=== PATIENT | female | born 1990 | race Two or more races ===

== ENCOUNTER 2018-04-14 11:22 | Emergency (ER) | payer SELFPAY ==
[2018-04-14] MEDS ORDERED: Lidocaine 1% 20 ML MDV INJECT ONE (11:36)
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
[2018-04-14] MEDS ORDERED: Diphtheria,Pertussis(Acell),Tetanus Vaccine 0.5 ML Syringe IM ONE (11:50)
[2018-04-14] MEDS ORDERED: Bacitracin Oint 1 GM U/D Packet TOP ONE ×2 (12:21→13:57)
--- NOTE | 2018-04-15 14:31 | CR ---
EXAM DATE: 04/14/18 PATIENT'S AGE: 27 Patient: CARY EMERSON Facility: [place], [place] Site . Site : 1990 Study: XRay Extremity Right forearm [id number] 1:43:10 PM Ordering Physician: Doctor Shields Final Report: Pain 2 views of the right 2 views of the right forearm performed at 1:32 p.m. this is compared to forearm x-rays at 12:34 p.m. Normal alignment. No acute fractures seen. Radiopaque foreign body now measures 6 mm along the medial distal aspect of the forearm previously measuring 15 mm. Soft tissue swelling. No acute fracture. Dictated by Cristela Carcamo MD @ Apr 14 2018 2:16PM (Electronic Signature) Report Signed by Proxy. SHASHA
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
== END 2018-04-14 14:17 | disposition home or self-care (01) ==
LOC: MW.ED 11:22
DX: S51.811A Laceration without foreign body of right forearm, initial encounter (principal); Z23 Encounter for immunization; V19.9XXA Pedal cyclist (driver) (passenger) injured in unspecified traffic accident, initial encounter
CPT/HCPCS: 73090-26-RT; 73090-RT; 90471; 90715; 99282-25

== ENCOUNTER 2018-04-17 11:48 | Day surgery (SDC) | payer SELFPAY ==
[~2018-04-17 11:48] MED LIST: Acetaminophen/HYDROcodone 325-5 MG Tab PO PRN; Bupivacaine 0.5% 10 ML SDV ONE; Lactated Ringers 1,000 ML IV SCH; ceFAZolin 1 GM in Premix Bag 1 BAG IV SCH
--- NOTE | 2018-04-17 12:17 | PCM.PREANE ---
Preanesthetic Assessment - Anesthesia/Transfusion/Family Hx Anesthesia History: No Prior Anesthesia Family History of Anesthesia Reaction: No Transfusion History: No Prior Transfusion(s) Intubation History: Unknown - Review of Systems General: No Symptoms Pulmonary: No Symptoms Cardiovascular: No Symptoms Gastrointestinal: No Symptoms Neurological: No Symptoms Other: Reports: None - Physical Assessment Height: 1.52 m Weight: 67.132 kg ASA Class: 2 Mental Status: Alert & Oriented x3 Airway Class: Mallampati = 2 Dentition: Reports: Normal Dentition Thyro-Mental Finger Breadths: 3 Mouth Opening Finger Breadths: 3 ROM/Head Extension: Full Lungs: Clear to Auscultation, Normal Respiratory Effort Cardiovascular: Regular Rate, Regular Rhythm - Allergies Allergies/Adverse Reactions: Allergies Allergy/AdvReac Type Severity Reaction Status Date / Time No Known Allergies Allergy Verified 04/14/18 11:35 - Blood Blood Available: No - Anesthesia Plan Pre-Op Medication Ordered: None - Acknowledgements Anesthesia Type Planned: General Anesthesia Pt an Appropriate Candidate for the Planned Anesthesia: Yes Alternatives and Risks of Anesthesia Discussed w Pt/Guardian: Yes Pt/Guardian Understands and Agrees with Anesthesia Plan: Yes PreAnesthesia Questionnaire Cardiovascular History: Reports: Hypertension Other Cardiovascular History: states has hx of hypertension- has been taken off meds Genitourinary History: Reports: Chronic Renal Insuffiency Other Genitourinary History: states renal disease since age 6 Dermatologic History: Reports: Other (See Below) Other Dermatologic History: states very sensitive to sunlight- causes a rash - SUBSTANCE USE Smoking Status *Q: Never Smoker Recreational Drug Use History: No - HOME MEDS Home Medications: Home Meds Amoxicillin/Potassium Clav [Augmentin 875-125 Tablet] 1 each PO BID #14 tablet 04/14/18 [Rx] Hydrocodone/Acetaminophen [Hydrocodon-Acetaminophen 5-325] 1 tab PO ASDIRECTED PRN 04/16/18 [History] - CURRENT (IN HOUSE) MEDS Current Meds: Current Medications Hydrocodone Bitart/Acetaminophen ([place] 325-5 Mg) 1 - 2 tab PO Q4H PRN PRN Reason: Pain Cefazolin Sodium/Dextrose 1 gm (/ Premix) 50 mls @ 100 mls/hr IV ONCALL ANABELL Lactated Ringer's (Ringers, Lactated) 1,000 mls @ 100 mls/hr IV ASDIRECTED ANABELL Discontinued Medications Bupivacaine HCl (Sensorcaine-Mpf 0.5%) Confirm Administered Dose 10 ml .ROUTE .Today [facility] Stop: 04/17/18 08:12
[2018-04-17] MEDS ORDERED: Midazolam 1 MG/ML 2 ML SDV ONE (12:18)
[2018-04-17] MEDS ORDERED: fentaNYL 250 MCG/5 ML SDV ONE (12:18)
[2018-04-17] MEDS ORDERED: Propofol 200 MG/20 ML SDV ONE (12:18)
[2018-04-17] MEDS ORDERED: Lidocaine 2% 5 ML SDV ONE (12:18)
[2018-04-17] MEDS ORDERED: Ondansetron 4 MG/2 ML SDV ONE (12:25)
[2018-04-17] MEDS ORDERED: fentaNYL 100 MCG/2 ML SDV IVPUSH PRN (13:30)
--- NOTE | 2018-04-17 14:09 | PCM.OPNOTE ---
- General Post-Op/Procedure Note Date of Surgery/Procedure: 04/17/18 Operative Procedure(s): Removal foreign body right forearm Post-Op Diagnosis: FB R forearm Anesthesia Technique: General LMA Primary Surgeon: Sana Reyes Contracts Advisor: Adrián Lucero in mLs: 5 Condition: Good Free Text/Narrative:: tt=0 min #[id number]
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
--- NOTE | 2018-04-17 15:23 | CR ---
EXAMINATION: Right forearm HISTORY: foreign body removal COMPARISON: 04/14/2018 TECHNIQUE: 2 views FINDINGS/IMPRESSION: There is no acute osseous abnormality, dislocation, or fracture. Previously demo nstrated radiopaque foreign body is no longer identified.
== END 2018-04-17 16:05 | disposition home or self-care (01) ==
LOC: MW.SDS 11:48
PROVIDERS: ATTEND Orthopaedic Surgery
DX: M79.5 Residual foreign body in soft tissue (principal); F17.210 Nicotine dependence, cigarettes, uncomplicated; I12.9 Hypertensive chronic kidney disease with stage 1 through stage 4 chronic kidney disease, or unspecified chronic kidney disease; N18.9 Chronic kidney disease, unspecified; Z18.81 Retained glass fragments; Z79.2 Long term (current) use of antibiotics; W45.8XXA Other foreign body or object entering through skin, initial encounter
CPT/HCPCS: 25248; 76000; 81025; 88300; A9270; J0690; J2250; J2405; J3010; J7120; J2704

== ENCOUNTER 2018-07-18 13:27 | Emergency (ER) | payer SELFPAY ==
--- NOTE | 2018-07-18 14:33 | EDM.PDOC ---
ED HPI GENERAL MEDICAL PROBLEM - General Chief Complaint: ENT Problem Stated Complaint: RT SIDE OF HEAD HURTS Time Seen by Provider: 07/18/18 14:30 Source of Information: Reports: Patient History Limitations: Reports: No Limitations - History of Present Illness INITIAL COMMENTS - FREE TEXT/NARRATIVE: HISTORY AND PHYSICAL: History of present illness: Patient is a 27-year-old female here with complaint of right ear pain x 3 days. She states denies any fevers, chills, nausea, vomiting. She states she's has some nasal congestion. Denies cough, SOB. She has not been taking anything OTC for the pain. Denies trauma to the ear. Review of systems: As per history of present illness and below otherwise all systems reviewed and negative. Past medical history: As per history of present illness and as reviewed below otherwise noncontributory. Surgical history: As per history of present illness and as reviewed below otherwise noncontributory. Social history: No reported history of drug or alcohol abuse. Family history: As per history of present illness and as reviewed below otherwise noncontributory. Physical exam: General: patient sitting comfortably in no acute distress HEENT: Right TM is slightly erythematous and bulging with purulent fluid noted. Atraumatic, normocephalic, pupils reactive, negative for conjunctival pallor or scleral icterus, mucous membranes moist, throat clear, neck supple, nontender, trachea midline. Lungs: Clear to auscultation, breath sounds equal bilaterally, chest nontender. Heart: S1S2, regular, negative for clicks, rubs, or JVD. Abdomen: Soft, nondistended, nontender. Negative for masses or hepatosplenomegaly. Negative for costovertebral tenderness. Pelvis: Stable nontender. Genitourinary: Deferred. Rectal: Deferred. Extremities: Atraumatic, negative for cords or calf pain. Neurovascular unremarkable. Neuro: Awake, alert, oriented. Cranial nerves II through XII unremarkable. Cerebellum unremarkable. Motor and sensory unremarkable throughout. Exam nonfocal. Notes: Diagnostics: None Therapeutics: None Prescription Augmentin Impression: Otitis media Plan: 1. Take antibiotic as directed. Alternate tylenol and motrin as needed 2. Follow up with primary care provider 3. Return to ED as needed as discussed Definitive disposition and diagnosis as appropriate pending reevaluation and review of above. Right Ear Pain Score (Numeric/FACES): 2 - Related Data Allergies Allergy/AdvReac Type Severity Reaction Status Date / Time No Known Allergies Allergy Verified 07/18/18 14:02 Home Meds: Home Meds Amoxicillin/Potassium Clav [Augmentin 875-125 Tablet] 1 each PO BID #14 tablet 07/18/18 [Rx] Past Medical History - Past Health History Medical/Surgical History: Denies Medical/Surgical History Cardiovascular History: Reports: Hypertension Other Cardiovascular History: states has hx of hypertension- has been taken off meds Genitourinary History: Reports: Chronic Renal Insuffiency Other Genitourinary History: states renal disease since age 6 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 ED EXAM, ENT - Physical Exam Exam: See Below (see dictation) Course - Vital Signs Last Recorded V/S: Last Vital Signs Temp 35.9 C 07/18/18 13:59 Pulse 93 07/18/18 13:59 Resp 18 07/18/18 13:59 BP 117/81 07/18/18 13:59 Pulse Ox 97 07/18/18 13:59 Departure - Departure Time of Disposition: 14:31 Disposition: Home, Self-Care 01 Condition: Good Clinical Impression: Otitis media - Discharge Information Prescriptions: Amoxicillin/Potassium Clav [Augmentin 875-125 Tablet] 1 each PO BID #14 tablet Instructions: Otitis Media, Adult, [id number] Referrals: PCP,None [Primary Care Provider] - Forms: ED Department Discharge Additional Instructions: The following information is given to patients seen in the emergency department who are being discharged to home. This information is to outline your options for follow-up care. We provide all patients seen in our emergency department with a follow-up referral. The need for follow-up, as well as the timing and circumstances, are variable depending upon the specifics of your emergency department visit. If you don't have a primary care physician on staff, we will provide you with a referral. We always advise you to contact your personal physician following an emergency department visit to inform them of the circumstance of the visit and for follow-up with them and/or the need for any referrals to a consulting specialist. The emergency department will also refer you to a specialist when appropriate. This referral assures that you have the opportunity for follow-up care with a specialist. All of these measure are taken in an effort to provide you with optimal care, which includes your follow-up. Under all circumstances we always encourage you to contact your private physician who remains a resource for coordinating your care. When calling for follow-up care, please make the office aware that this follow-up is from your recent emergency room visit. If for any reason you are refused follow-up, please contact the [facility] Emergency Department at and asked to speak to the emergency department charge nurse. [facility] [address] [place] [id number] [facility] [address] [place] [id number] 1. Take antibiotic as directed. Alternate tylenol and motrin as needed 2. Follow up with primary care provider 3. Return to ED as needed as discussed
== END 2018-07-18 15:02 | disposition home or self-care (01) ==
LOC: MW.ED 13:27
DX: H66.91 Otitis media, unspecified, right ear (principal); I10 Essential (primary) hypertension
CPT/HCPCS: 99282